=== PATIENT | female | born 1975 | race Two or more races ===

== ENCOUNTER → 2018-10-28 | Outpatient (CLI) | payer OTHER ==
[2014-12-14 09:55] VITALS: BP 114/70
[~2018-10-28] MED LIST: LORA10TA68 PO; METF500T16 PO
--- NOTE | 2018-10-28 10:46 | KCIC ---
Left breast ultrasound: Reason for examination: Follow-up exam. Comparison is made to previous study dated 04/09/2018. Ultrasound examination was performed with attention to the area of previous concern and the left axilla. In the 2:00 position 9 cm from the nipple, there continues to be a small focus of fibrocystic-type change measuring 4.7 x 4.5 mm in greatest dimension. This is smaller than on previous exam. There are no new cystic or solid lesions. No abnormal appearing lymph nodes are seen in the axilla. IMPRESSION: Continued presence of a small focus of fibrocystic change at the 2:00 position which has decreased in size since previous exam. Recommend routine mammograms in April. BI-RADS Category 2: Benign. "Our facility is accredited by the [employer] Mammography Program." This patient's information has been entered into a reminder system for the patient to be notified with the results of her examination and a target date for the next mammogram. Electronically signed by: Mariah Crawford MD (10/28/2018 10:43 AM) [id number]
== END | disposition home or self-care (01) ==
LOC: KCIC MAMMO 10:15
PROVIDERS: ATTEND Family Medicine
DX: N60.02 Solitary cyst of left breast (principal)
CPT/HCPCS: 76641